=== PATIENT | male | born 1975 | race Caucasian/White ===

== ENCOUNTER 2019-12-22 23:44 | Observation (INO) | payer OTHER ==
[~2019-12-22] VITALS: Ht 182.9 cm; Wt 73.0 kg
[2019-12-22 23:57] VITALS: BP 133/61
[2019-12-23] VITALS (7 sets, daily range): BP systolic 98–125; BP diastolic 52–62
[2019-12-23 00:11] LABS: ABSOLUTE BASOPHILS 0.1 thou/uL (0.0-0.2); ABSOLUTE LYMPHOCYTES 1.7 thou/uL (0.8-5.3); ABSOLUTE MONOCYTES 0.7 thou/uL (0.0-1.2); BASOPHILS 0.9 %; EOSINOPHILS 0.5 %; HEMATOCRIT 40.3 % (42.0-52.0); HEMOGLOBIN 14.3 gm/dL (14.0-18.0); LYMPHOCYTES 26.9 %; MCH 29.8 pg (26.0-34.0); MCHC 35.5 g/dL (28.0-37.0); MONOCYTES 10.2 %; MPV 7.5 fl. (7.2-11.1); NUCLEATED RBCS 0 /100WBC; PLATELET COUNT* 263 thou/uL (150-400); POLYS 61.5 %; RDW-CV 12.9 % (10.5-14.5); WBC 6.4 thou/uL (4.0-11.0)
[2019-12-23 00:12] LABS: URINE BILIRUBIN NEGATIVE (Negative); URINE BLOOD 1+ (Negative); URINE CLARITY CLEAR; URINE COLOR YELLOW; URINE GLUCOSE-RANDOM NEGATIVE (Negative); URINE LEUKOCYTES-REFLEX NEGATIVE (Negative); URINE NITRITE-REFLEX NEGATIVE (Negative); URINE PROTEIN NEGATIVE (Negative); URINE UROBILINOGEN 0.2 E.U./dl (0.2-1.0)
[2019-12-23 00:13] LABS: URINE KETONES 3+ (Negative)
[2019-12-23 00:17] LABS: CREATININE 1.2 mg/dL (0.6-1.3)
[2019-12-23 00:21] LABS: ALBUMIN 4.2 g/dL (3.4-5.0); TOTAL BILIRUBIN 1.4 mg/dL (<0.1-1.0); TOTAL PROTEIN 7.1 g/dL (6.4-8.2)
[2019-12-23 00:26] LABS: POTASSIUM 2.5 mmol/L (3.5-5.1)
[2019-12-23 00:42] LABS: BACTERIA-REFLEX 1-9 Few /HPF (None Seen); CASTS None Seen /LPF (None Seen); CRYSTALS None Seen /LPF (None Seen); MUCUS None Seen strn/LPF (None Seen); SQUAMOUS 0-3 Few /LPF (0-3); URINE RBC 3-10 Few /HPF (0-2); URINE WBC-REFLEX None Seen /HPF (0-5)
[2019-12-23 08:57] LABS: CALCIUM 7.6 mg/dL (8.5-10.1)
[2019-12-23 14:10] LABS: CALCIUM 7.4 mg/dL (8.5-10.1); CREATININE 1.2 mg/dL (0.6-1.3); POTASSIUM 3.8 mmol/L (3.5-5.1)
[2019-12-23 21:56] LABS: CALCIUM 7.7 mg/dL (8.5-10.1); CREATININE 1.1 mg/dL (0.6-1.3); POTASSIUM 3.6 mmol/L (3.5-5.1)
[2019-12-24 04:00] VITALS: BP 103/64
[2019-12-24 04:50] LABS: MAGNESIUM 2.2 mg/dL (1.8-2.4); POTASSIUM 3.7 mmol/L (3.5-5.1)
[2019-12-24 07:49] VITALS: BP 107/61
[2019-12-24 09:47] VITALS: BP 107/61
== END 2019-12-24 12:42 | disposition home or self-care (01) ==
LOC: M.ERS 23:44 → M.2W 12-23 01:41 → M.TBA-ER 12-23 01:41 → M.2W 12-23 03:21
PROVIDERS: Emergency Medicine; ADMIT Internal Medicine
DX: E87.1 Hypo-osmolality and hyponatremia (principal); R19.7 Diarrhea, unspecified; E87.6 Hypokalemia; E83.42 Hypomagnesemia; G92 Toxic encephalopathy; R11.2 Nausea with vomiting, unspecified; R41.0 Disorientation, unspecified